=== PATIENT | female | born 1975 ===

== ENCOUNTER 2021-07-11 09:33 | Emergency (ER) | payer OTHER ==
[~2021-07-11] VITALS: Ht 177.8 cm; Wt 97.1 kg
[2021-07-11 09:36] VITALS: BP 152/85
== END 2021-07-11 10:10 | disposition home or self-care (01) ==
LOC: ED 10:00
DX: Z00.00 Encounter for general adult medical examination without abnormal findings (principal); Z20.822 Contact with and (suspected) exposure to COVID-19
CPT/HCPCS: 99283; U0003; U0005

== ENCOUNTER 2021-07-15 08:54 | Emergency (ER) | payer OTHER ==
[~2021-07-15] VITALS: Ht 177.8 cm; Wt 98.1 kg
[2021-07-15 08:56] VITALS: BP 135/75
== END 2021-07-15 09:46 | disposition home or self-care (01) ==
LOC: ED 09:06
DX: Z20.822 Contact with and (suspected) exposure to COVID-19 (principal); Z90.89 Acquired absence of other organs
CPT/HCPCS: 99283; U0003; U0005